=== PATIENT | male | born 1960 | race Caucasian/White ===

== ENCOUNTER 2016-07-16 19:14 | Emergency (ER) | payer OTHER, MEDICAID ==
[~2016-07-16] VITALS: Ht 175.3 cm; Wt 49.0 kg
[~2016-07-16 19:14] MED LIST: ASPI81TA2 PO; CARV3.1246 PO; COMBIGAN OP; DOCU-144 PO; FAMO20TA8 PO; LEVO500T20 PO; MULT PO; MYCO500T PO; OXYC20TA55 PO; PHOSPHA NEUTRAL PO; PRED20TA PO; SEN30 PO; SULF1TAB48 PO; TACR1CAP PO; TRAV2.5D OP
[2016-07-16] MEDS ORDERED: ONDANSETRON HCL 4 MG/2 ML VIAL IVP ONE (19:30)
[2016-07-16] MEDS ORDERED: KETOROLAC TROMETHAMINE 30 MG VIAL IVP ONE ×2 (19:30→20:00)
[2016-07-16 19:37] VITALS: BP_SYST 124
--- NOTE | 2016-07-16 19:44 | NUR ---
Placed in room 01. Placed on groundwater monitoring technician, blood pressure machine and pulse oximeter. To gown for exam. Side rails up.
--- NOTE | 2016-07-16 19:48 | NUR ---
Patient alert and oriented x 3. Came in the ER with a complaint of sharp abdominal pain with chest pain and nausea. Pain scale 10/10. No acute distress or SOB noted. O2 sat at 93% at this time. Denies any other complaints. Will continue to monitor.
--- NOTE | 2016-07-16 19:50 | NUR ---
# 20 gauge angiocath placed to left upper chest. Use of asceptic technique. Opsite placed over site. Blood return noted. Blood for lab drawn from site. Flushed with 10 cc of normal saline. No evidence of infiltration noted. Patient tolerated well.
--- NOTE | 2016-07-16 19:50 | NUR ---
Dr. Goddard at bedside for evaluation
[2016-07-16] MEDS ORDERED: IPRATROPIUM/ALBUTEROL SULFATE 3 ML AMPUL.NEB INH ONE (20:00)
[2016-07-16] MEDS ORDERED: MAG HYDROX/AL HYDROX/SIMETH 30 ML, BELLADONNA ALKALOIDS/PHENOBARB 10 ML, LIDOCAINE VISC... PO ONE ×3 (20:00)
[2016-07-16 20:29] LABS: BASOPHILS # (AUTO) 0.1 K/uL (0.0-0.2); BASOPHILS % (AUTO) 0.8 % (0.0-2.0); EOSINOPHILS % (AUTO) 0.1 % (0.0-4.0); HEMATOCRIT 49.1 % (36-54); HEMOGLOBIN 15.5 g/dL (14.0-18.0); LYMPHOCYTES # (AUTO) 0.4 K/uL (1.0-5.5); MEAN CORPUSCULAR HEMOGLOBIN 25 pg (27-31); MEAN CORPUSCULAR HGB CONC 32 % (32-36); MEAN CORPUSCULAR VOLUME 78 fL (79.0-98.0); MONOCYTES # (AUTO) 1.3 K/uL (0.0-1.0); MONOCYTES % (AUTO) 9.3 % (1.7-9.3); NEUTROPHILS % (AUTO) 86.8 % (40.0-70.0); PLATELET COUNT (AUTO) 262 K/uL (130-430); RED BLOOD CELL COUNT(AUTO) 6.31 MIL/uL (4.2-6.2); RED CELL DISTRIBUTION WIDTH 17.5 % (9.0-15.0); WHITE BLOOD COUNT (AUTO) 13.8 K/uL (4.8-10.8)
[2016-07-16 20:33] LABS: INR 1.4 (0.80-1.20); PROTHROMBIN TIME 14.9 SECS (9.5-12.5)
[2016-07-16 20:45] LABS: CALCIUM 10.8 mg/dL (8.4-11.0); CREATININE 1.22 mg/dL (0.55-1.30); POTASSIUM 4.2 mmol/L (3.5-5.1)
[2016-07-16] MEDS ORDERED: CLOP75TA2 PO (20:46)
[2016-07-16] MEDS ORDERED: BRIN10DR EACH EYE (20:46)
--- NOTE | 2016-07-16 20:47 | NUR ---
Medication reconciliation completed with information provided by patient. Any prior medication reconciliation on file was reviewed and corrected.
[2016-07-16 20:48] LABS: BILIRUBIN,URINE NEGATIVE (NEGATIVE); BLOOD, URINE NEGATIVE (NEGATIVE); CLARITY/URINE CLEAR (CLEAR); COLOR,URINE YELLOW (YELLOW); GLUCOSE,URINE NEGATIVE (NEGATIVE); KETONES,URINE NEGATIVE (NEGATIVE); LEUKOCYTE ESTERASE ,URINE NEGATIVE (NEGATIVE); NITRITE, URINE NEGATIVE (NEGATIVE); PROTEIN URINE NEGATIVE (NEGATIVE); UROBILINOGEN,URINE 0.2 (0.2-1.0)
[2016-07-16 20:49] LABS: ALBUMIN 2.9 g/dL (3.4-4.8); TOTAL BILIRUBIN 1.3 mg/dL (0.0-1.0); TOTAL PROTEIN, SERUM 7.1 g/dL (6.4-8.3)
--- NOTE | 2016-07-16 22:45 | NUR ---
Dr. Kumar ordered for a second set of EKG. EKG done at bedside.
[2016-07-16 23:30] VITALS: BP_SYST 101
--- NOTE | 2016-07-16 23:30 | NUR ---
Patient given written and verbal discharge instructions and verbalizes understanding. ER MD discussed with patient the results and treatment provided. Patient in stable condition. No acute distress or SOB noted upon discharge. ID arm band removed. IV catheter removed intact and dressing applied, no active bleeding. Rx of Pepcid, Albuterol sulfate and Albuterol aeorsol given. Patient educated on pain management and to follow up with PMD. Pain Scale 0/10. Opportunity for questions provided and answered.
== END 2016-07-16 23:30 | disposition home or self-care (01) ==
LOC: SED 19:14
DX: R07.89 Other chest pain (principal); J44.1 Chronic obstructive pulmonary disease with (acute) exacerbation; F17.210 Nicotine dependence, cigarettes, uncomplicated; I10 Essential (primary) hypertension; Z95.1 Presence of aortocoronary bypass graft; Z71.6 Tobacco abuse counseling; Z94.0 Kidney transplant status; Z89.222 Acquired absence of left upper limb above elbow; Z79.82 Long term (current) use of aspirin
CPT/HCPCS: 36415; 71010; 80053; 81003; 82150; 83605; 83690; 84484; 85025; 85610; 87040; 94640; 96374; 96375; 99285; J1885; J2001; J2405; 93005

== ENCOUNTER 2016-07-21 21:25 | Emergency (ER) | payer OTHER, MEDICAID ==
[2015-03-12 11:41] VITALS: Ht 175.3 cm; Wt 49.0 kg
[~2016-07-21] VITALS: Ht 175.3 cm; Wt 49.0 kg
[~2016-07-21 21:25] MED LIST changes: +BRIN10DR EACH EYE; +CALC667C PO; +CEL250 PO; +CLOP75TA2 PO; +MULT-1089 PO; +PRED5TAB PO
[2016-07-21 21:30] VITALS: BP 150/76; PULSE 110; RESP 18; TEMP 97.2; O2SAT 94
--- NOTE | 2016-07-21 21:30 | NUR ---
Patient triaged and placed in waiting room. VSS and patient appears in no acute distress at this time. Accompanied by self, awaiting available bed, and MD notified of need for MSE.
--- NOTE | 2016-07-21 22:30 | NUR ---
Pt A&O x 4, c/o pain 9/10 to upper stomach. Pt states having mild SOB. 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 Pt noted missing left arm. Continue to monitor pt
--- NOTE | 2016-07-21 23:15 | NUR ---
ER Dr. Azevedo at bedside examining patient.
[2016-07-21] MEDS ORDERED: NACL 0.9% 1,000 ML IV ONE (23:19)
[2016-07-21] MEDS ORDERED: PANTOPRAZOLE SODIUM 40 MG/VIAL (PROTONIX) IVP ONE (23:30)
[2016-07-21] MEDS ORDERED: MORPHINE 2 MG/ML INJ. SYRINGE IVP ONE (23:30)
[2016-07-21] MEDS ORDERED: LevALBUTEROL HCL 1.25 MG/0.5 ML *CONC.* VIAL.NEB (XOPENEX CONC.) INH ONE (23:30)
[2016-07-21] MEDS ORDERED: MAG HYDROX/AL HYDROX/SIMETH 30 ML, BELLADONNA ALKALOIDS/PHENOBARB 10 ML, LIDOCAINE VISC... PO ONE ×3 (23:30)
[2016-07-21 23:34] LABS: BASOPHILS % (AUTO) 0.1 % (0.0-2.0); EOSINOPHILS # (AUTO) 0.1 K/uL (0.0-0.4); EOSINOPHILS % (AUTO) 0.6 % (0.0-4.0); HEMATOCRIT 52.4 % (36-54); HEMOGLOBIN 16.6 g/dL (14.0-18.0); LYMPHOCYTES # (AUTO) 0.5 K/uL (1.0-5.5); LYMPHOCYTES % (AUTO) 4.5 % (20.5-51.5); MEAN CORPUSCULAR HEMOGLOBIN 24 pg (27-31); MEAN CORPUSCULAR HGB CONC 32 % (32-36); MEAN CORPUSCULAR VOLUME 77 fL (79.0-98.0); MONOCYTES % (AUTO) 8.5 % (1.7-9.3); NEUTROPHILS % (AUTO) 86.3 % (40.0-70.0); PLATELET COUNT (AUTO) 401 K/uL (130-430); RED BLOOD CELL COUNT(AUTO) 6.84 MIL/uL (4.2-6.2); RED CELL DISTRIBUTION WIDTH 17.1 % (9.0-15.0); WHITE BLOOD COUNT (AUTO) 11.6 K/uL (4.8-10.8)
[2016-07-21 23:38] LABS: CALCIUM 10.7 mg/dL (8.4-11.0); CREATININE 1.26 mg/dL (0.55-1.30); POTASSIUM 4.6 mmol/L (3.5-5.1)
[2016-07-21 23:42] LABS: ALBUMIN 2.6 g/dL (3.4-4.8); TOTAL PROTEIN, SERUM 6.9 g/dL (6.4-8.3)
[2016-07-22 01:42] VITALS: BP 131/74; PULSE 76; RESP 18; TEMP 97.2; O2SAT 97
--- NOTE | 2016-07-22 01:42 | NUR ---
Patient given written and verbal discharge instructions and verbalizes understanding. ER MD discussed with patient the results and treatment provided. Given copies of tests performed in ER. Patient in stable condition. ID arm band removed. IV catheter removed intact and dressing applied, no active bleeding. Patient educated on pain management and to follow up with PMD. Pain Scale 2/10. Opportunity for questions provided and answered.
[2016-10-05] MEDS ORDERED: PRED5TAB PO (17:55)
[2016-10-05] MEDS ORDERED: WARF3TAB28 PO (17:55)
[2016-10-05] MEDS ORDERED: MYCO250C PO (17:55)
== END 2016-07-22 01:42 | disposition home or self-care (01) ==
LOC: SED 21:25
DX: J44.9 Chronic obstructive pulmonary disease, unspecified (principal); I10 Essential (primary) hypertension; Z95.1 Presence of aortocoronary bypass graft; Z86.79 Personal history of other diseases of the circulatory system; Z79.82 Long term (current) use of aspirin; Z79.899 Other long term (current) drug therapy; K29.70 Gastritis, unspecified, without bleeding
CPT/HCPCS: 36415; 80053; 83690; 83880; 84484; 85025; 94640; 96361; 96374; 96375; 99285; C9113; J2001; J2270; J7030